=== PATIENT | female | born 1945 | race Caucasian/White ===

== ENCOUNTER 2016-12-17 11:42 | Inpatient (IN) | payer OTHER ==
[2016-12-17 12:05] VITALS: BMI 16.4
--- NOTE | 2016-12-17 14:01 | HP ---
Admission [facility] Chief Complaint: REHAB TX FOR DRUG DEPENDENCE Allergies/Adverse Reactions: Allergies Allergy/AdvReac Type Severity Reaction Status Date / Time No Known Allergies Allergy Verified 12/17/16 13:01 History of Present Illness: 71 Y/O FEMALE WITH A HX OF HEROIN AND COCAINE DEPENDENCE ON MMTP SEEKING DETOX [place]. Exam Limitations: No Limitations - Ebola screening Have you traveled outside of the country in the last 21 days: No Have you had contact with anyone from an Ebola affected area: No Have you been sick,other than usual withdrawal symptoms: No Do you have a fever: No - Review of Systems Constitutional: Loss of Appetite, Changes in sleep, Unintentional Wgt. Loss EENT: reports: Blurred Vision, Tearing, Nose Congestion (RUNNY NOSE), Dental Problems (FULL UPPER AND LOWER DENTURES. NO TEETH) Respiratory: reports: Shortness of Breath (HX ASTHMA/COPD), Wheezing Cardiac: reports: No Symptoms Reported GI: reports: Poor Appetite : reports: No Symptoms Reported Musculoskeletal: reports: Back Pain, Joint Pain, Muscle Pain, Other (HX ARTHRITIS) Integumentary: reports: No Symptoms Reported Neuro: reports: Headache, Numbness, Tingling, Tremors, Unsteady Gait (HX FALLS. USES CANE) Endocrine: reports: No Symptoms Reported Hematology: reports: Anemia Psychiatric: reports: Orientated x3, Anxious, Depressed Other Systems: Reviewed and Negative Patient History - Patient Medical History Hx Anemia: Yes Hx Asthma: Yes (ON MDI) Hx Chronic Obstructive Pulmonary Disease (COPD): Yes Hx Cardiac Disorders: No Hx Hypertension: No Hx Hypercholesterolemia: No HX Cerebrovascular Accident: No Hx Seizures: No Hx Diabetes: No Hx Gastrointestinal Disorders: Yes (GERD-ZANTAC IN THE PAST) Hx Genitourinary Disorders: No Hx Sexually Transmitted Disorders: No Hx Renal Disease (ESRD): No Hx Thyroid Disease: No Hx Human Immunodeficiency Virus (HIV): No (NEGATIVE HX) Hx Hepatitis C: No Hx Depression: Yes (ON MEDS-SEROQUEL AND TRAZODONE) Hx Suicide Attempt: No (DENIES) Hx Bipolar Disorder: No Hx Schizophrenia: No - Patient Surgical History Past Surgical History: No Hx Neurologic Surgery: No Hx Cataract Extraction: No Hx Cardiac Surgery: No Hx Lung Surgery: No Hx Breast Surgery: No Hx Breast Biopsy: No Hx Abdominal Surgery: No Hx Appendectomy: No Hx Cholecystectomy: No Hx Genitourinary Surgery: No Hx Section: No Hx Orthopedic Surgery: No Hx Hysterectomy: No Anesthesia Reaction: No - PPD History Previous Implant?: Yes Documented Results: Negative w/o proof Implanted On [facility] Admission?: No PPD to be Administered?: Yes - Reproductive History Patient is a Female of Child Bearing Age (11 -55 yrs old): 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 History Hx Alcohol Use: No (DENIES) Hx Substance Use: Yes (HEROIN/CRACK) Substance Use Type: Cocaine, Heroin Hx Substance Use Treatment: Yes (CURRENTLY IN [facility] WITH METHADONE 120 MG PO DAILY,LAST DOSED TODAY.) - Substances Abused Crack Route: Smoking Frequency: Daily Amount used: $20 Age of first use: 21 Date of Last Use: 12/16/16 Heroin Route: Inhalation Frequency: 3-6 times per week Amount used: 10 BAGS Age of first use: 21 Date of Last Use: 12/16/16 Family Disease History - Family Disease History Family History: Denies Admission Physical Exam [facility] - Vital Signs Vital Signs: Vital Signs - 24 hr 12/17/16 12:02 Temperature 98.3 F Pulse Rate 71 Respiratory 16 Rate Blood Pressure 100/60 - Physical General Appearance: Yes: No Apparent Distress, Thin, Irritable, Anxious HEENTM: Yes: EOMI, Normocephalic, RAEGAN, Nasal Congestion, Rhinorrhea Respiratory: Yes: Chest Non-Tender, Lungs Clear, Normal Breath Sounds, No Respiratory Distress Neck: Yes: No masses,lesions,Nodules, Supple, Trachea in good position Breast: Yes: Breast Exam Deferred Cardiology: Yes: Regular Rhythm, Regular Rate, S1, S2 Abdominal: Yes: Normal Bowel Sounds, Non Tender, Flat, Soft Genitourinary: Yes: Other (N/C) Back: Yes: Within Normal Limits Musculoskeletal: Yes: full range of Motion, Gait Steady Extremities: Yes: Normal Range of Motion, Non-Tender 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, Fully Oriented, Alert Lymphatic: Yes: Within Normal Limits - Diagnostic (1) Methadone maintenance therapy patient Current Visit: Yes Status: Chronic (2) Cocaine dependence, uncomplicated Current Visit: Yes Status: Acute (3) Asthma Current Visit: Yes Status: Acute Qualifiers: Asthma severity: mild intermittent Asthma complication type: uncomplicated Qualified Code(s): J45.20 - Mild intermittent asthma, uncomplicated (4) GERD (gastroesophageal reflux disease) Current Visit: Yes Status: Chronic Qualifiers: Esophagitis presence: without esophagitis Qualified Code(s): K21.9 - Gastro-esophageal reflux disease without esophagitis Cleared for Admission [facility] - Detox or Rehab Claeared for Rehab Admission: Yes [facility] Breath Alcohol Content Breath Alcohol Content: 0 Urine Pregancy Test - Result Urine Test Results: Negative- NO Line Present Urine Drug Screen - Results Drug Screen Negative: No Urine Drug Screen Results: MENA-Cocaine, MTD-Methadone
[2016-12-17] MEDS ORDERED: ACETAMINOPHEN 325 MG TABLET (FP) PO PRN (14:15)
[2016-12-17] MEDS ORDERED: LOPERAMIDE HCL 2 MG CAPSULE PO PRN (14:15)
[2016-12-17] MEDS ORDERED: P-EPHED 60MG/TRIPROLIDI 2.5MG TABLET PO PRN (14:15)
[2016-12-17] MEDS ORDERED: guaiFENesin/D-METHORPHAN HB 10 ML UNIT-DOSE CUPS PO PRN (14:15)
[2016-12-17] MEDS ORDERED: MAGNESIUM HYDROX 2400MG/30ML ORAL SUSPENSION 30 ML CUP PO PRN (14:15)
[2016-12-17] MEDS ORDERED: MAGNESIUM CITRATE 300 ML BOTTLE PO PRN (14:15)
[2016-12-17] MEDS ORDERED: MENTHOL/PHENOL 1 EACH UD MM PRN (14:15)
[2016-12-17] MEDS ORDERED: ALBUTEROL SO4 6.7 GM HFA INHALER IH PRN (14:21)
[2016-12-17 16:55] LABS: URINE APPEARANCE SLCLOUDY; URINE BILIRUBIN NEGATIVE (NEGATIVE); URINE BLOOD NEGATIVE (NEGATIVE); URINE COLOR YELLOW; URINE GLUCOSE (UA) NEGATIVE (NEGATIVE); URINE KETONE NEGATIVE (NEGATIVE); URINE LEUK ESTERASE TRACE (NEGATIVE); URINE NITRITE NEGATIVE (NEGATIVE); URINE PROTEIN NEGATIVE (NEGATIVE); URINE UROBILINOGEN NEGATIVE mg/dL (0.2-1.0)
[2016-12-17 17:04] LABS: MCH 29.6 pg (25.7-33.7); MCHC 32.6 g/dl (32.0-36.0); MEAN CELL VOLUME 90.6 fl (80-96); MEAN PLT VOLUME 8.6 fl (7.5-11.1); PLATELET COUNT 374 K/MM3 (134-434); WHITE BLOOD COUNT 11.1 K/mm3 (4.0-10.0)
[2016-12-17 17:09] LABS: ALBUMIN 2.9 g/dl (3.4-5.0); ALK PHOS 101 U/L (45-117); ANION GAP 6 (8-16); BILIRUBIN,TOTAL 0.7 mg/dL (0.2-1.0); CALCIUM 8.8 mg/dL (8.5-10.1); CO2 34 mmol/L (21-32); CREATININE 0.8 mg/dL (0.55-1.02); GLUCOSE,RANDOM 96 mg/dL (74-106); SGOT/AST 19 U/L (15-37); SGPT/ALT 16 U/L (12-78); TOT PROT 6.8 g/dl (6.4-8.2)
[2016-12-17] MEDS ORDERED: TUBERCULIN PPD 5 TU/0.1ML VIAL ID ONE (17:54)
[2016-12-17] MEDS: NICOTINE 14 MG/24 HOURS TOPICAL PATCH TD SCH (19:02)
[2016-12-17 20:04] LABS: URINE RBC 1 /hpf (0-3); URINE WBC 3 /hpf (3-5)
[2016-12-17] MEDS: QUEtiapine FUMARATE 200 MG TABLET PO SCH (21:28)
[2016-12-17] MEDS: traZODone HCL 100 MG TABLET (FP) PO SCH (21:28)
[2016-12-17] MEDS: THIAMINE HCL 100 MG TABLET (FP) PO SCH (21:28)
[2016-12-18] MEDS ORDERED: METHADONE HCL 40 MG DISPERSABLE TABLET PO ONE (07:53)
[2016-12-18] MEDS: NICOTINE 14 MG/24 HOURS TOPICAL PATCH TD SCH (09:44)
[2016-12-18] MEDS: PRENATAL VITAMINS W/ FOLIC ACID TABLET (FP) PO SCH (09:44)
[2016-12-18] MEDS ORDERED: PNEUMOC 13-VAL CONJ-DIP CRM/PF 0.5 ML DISP.SYRIN IM ONE (12:00)
[2016-12-18 12:19] LABS: HIV 1 & 2 AB NEGATIVE; HIV 1 AGp24 NEGATIVE
--- NOTE | 2016-12-18 18:44 | EKG ---
Test Reason : Blood Pressure : / mmHG Vent. Rate : 061 BPM Atrial Rate : 061 BPM P-R Int : 134 ms QRS Dur : 108 ms QT Int : 434 ms P-R-T Axes : 065 -62 064 degrees QTc Int : 436 ms NORMAL SINUS RHYTHM INCOMPLETE RIGHT BUNDLE BRANCH BLOCK LEFT ANTERIOR FASCICULAR BLOCK ABNORMAL ECG WHEN COMPARED WITH ECG OF 13-SEP-2008 16:32, NO SIGNIFICANT CHANGE WAS FOUND Confirmed by CHRIS ROBISON MD ([id number]) on 12/18/2016 6:44:35 PM Referred By: Confirmed By:CHRIS ROBISON MD
[2016-12-18] MEDS: THIAMINE HCL 100 MG TABLET (FP) PO SCH (21:22)
[2016-12-18] MEDS: QUEtiapine FUMARATE 200 MG TABLET PO SCH (21:22)
[2016-12-18] MEDS: traZODone HCL 100 MG TABLET (FP) PO SCH (21:22)
[2016-12-18] MEDS: diphenhydrAMINE HCL 50 MG CAPSULE PO PRN (21:38)
[2016-12-19] MEDS: METHADONE HCL 40 MG DISPERSABLE TABLET PO SCH (07:14)
[2016-12-19] MEDS: PRENATAL VITAMINS W/ FOLIC ACID TABLET (FP) PO SCH (09:38)
[2016-12-19] MEDS: NICOTINE 14 MG/24 HOURS TOPICAL PATCH TD SCH (09:38)
[2016-12-19] MEDS: traZODone HCL 100 MG TABLET (FP) PO SCH (21:39)
[2016-12-19] MEDS: diphenhydrAMINE HCL 50 MG CAPSULE PO PRN (21:39)
[2016-12-19] MEDS: QUEtiapine FUMARATE 200 MG TABLET PO SCH (21:39)
[2016-12-19] MEDS: THIAMINE HCL 100 MG TABLET (FP) PO SCH (21:39)
[2016-12-20] MEDS: METHADONE HCL 40 MG DISPERSABLE TABLET PO SCH (06:22)
[2016-12-20] MEDS: PRENATAL VITAMINS W/ FOLIC ACID TABLET (FP) PO SCH (10:20)
[2016-12-20] MEDS: NICOTINE 14 MG/24 HOURS TOPICAL PATCH TD SCH (10:20)
--- NOTE | 2016-12-20 10:24 | HP ---
Psychiatrist Admission - Data Date of interview: 12/20/16 Admission source: [facility] Identifying data: This is the first admission to [address] [place] [address] rehabilitation for this 71 years old female single female,reides alone ,supported by [facility]. Medical History: GERD,BA,Chronic arthritis,Loss weight. Psychiatric History: Patient reports first contact with psychiatrist was about 20 years ago when she was admitted to [facility] after suicidal attempt (cut her wrist).Patient was evaluated by psychiatrist.She was dx wirh Bipolar disorder and placed on psychotropic medications:Trazodone 200 mg po hs, Seroquel 200 mg po hs. with some reponse.Patient reports no more psychiatric admissions,no suicidal attempts after that.Patient sees psychiatrist on and off, most recent appointment was a few months ago when she was attending [facility] program.She was on Seroquel 200 mg po hs and Trazodone 200 mg po hs. Physical/Sexual Abuse/Trauma History: denies Vital Signs: Vital Signs - 24 hr 12/20/16 12/20/16 12/20/16 00:30 03:30 06:39 Temperature 97.3 F L Pulse Rate 92 H Respiratory 18 18 18 Rate Blood Pressure 104/66 Allergies/Adverse Reactions: Allergies Allergy/AdvReac Type Severity Reaction Status Date / Time No Known Allergies Allergy Verified 12/17/16 13:01 Date of last physical exam: 12/17/16 Concur with the findings of this exam: No - Substance Abuse/Tx History Hx Alcohol Use: No Hx Substance Use: Yes (cocaine since late ,herin since 21 yo(sniffing 5 bags daily),MMTP 120 ) Substance Use Type: Cocaine, Heroin Hx Substance Use Treatment: Yes (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) - Admission Criteria Previous failed treatment: Yes Poor recovery environment: Yes Comorbidities: Yes Lacks judgement: Yes Mental Status Exam - Mental Status Exam Alert and Oriented to: Time, Place, Person Cognitive Function: Grossly Intact Patient Appearance: Unkempt Mood: Sad Affect: Mood Congruent, Labile Patient Behavior: Cooperative Speech Pattern: Clear Voice Loudness: Normal Thought Process: Goal Oriented Thought Disorder: Not Present Hallucinations: Denies Suicidal Ideation: Denies Homicidal Ideation: Denies Insight/Judgement: Fair Sleep: Fair Appetite: Fair, Weight loss Muscle strength/Tone: Normal Gait/Station: Normal Psychiatric Findings - Problem List (Taylor 1, 2,3) (1) Methadone maintenance therapy patient Current Visit: Yes Status: Chronic (2) Asthma Current Visit: Yes Status: Chronic Qualifiers: Asthma severity: mild intermittent Asthma complication type: uncomplicated Qualified Code(s): J45.20 - Mild intermittent asthma, uncomplicated (3) Cocaine dependence, uncomplicated Current Visit: Yes Status: Chronic (4) GERD (gastroesophageal reflux disease) Current Visit: Yes Status: Chronic Qualifiers: Esophagitis presence: without esophagitis Qualified Code(s): K21.9 - Gastro-esophageal reflux disease without esophagitis (5) Bipolar II disorder Current Visit: Yes Status: Chronic - Initial Treatment Plan Initial Treatment Plan: Continue Seroquel 200 mg po hs and Trazodone 200 mg po hs.will monitor progress.
[2016-12-20] MEDS: QUEtiapine FUMARATE 200 MG TABLET PO SCH (21:17)
[2016-12-20] MEDS: traZODone HCL 100 MG TABLET (FP) PO SCH (21:18)
[2016-12-20] MEDS: diphenhydrAMINE HCL 50 MG CAPSULE PO PRN (21:18)
[2016-12-20] MEDS: THIAMINE HCL 100 MG TABLET (FP) PO SCH (21:18)
[2016-12-21] MEDS: METHADONE HCL 40 MG DISPERSABLE TABLET PO SCH (06:20)
[2016-12-21] MEDS: PRENATAL VITAMINS W/ FOLIC ACID TABLET (FP) PO SCH (09:52)
[2016-12-21] MEDS: NICOTINE 14 MG/24 HOURS TOPICAL PATCH TD SCH (09:52)
[2016-12-21] MEDS: MAG HYDROX/AL HYDROX/SIMETH 30 ML UNIT-DOSE CUP PO PRN (20:29)
[2016-12-21] MEDS: QUEtiapine FUMARATE 200 MG TABLET PO SCH (21:19)
[2016-12-21] MEDS: traZODone HCL 100 MG TABLET (FP) PO SCH (21:19)
[2016-12-21] MEDS: THIAMINE HCL 100 MG TABLET (FP) PO SCH (21:19)
[2016-12-21] MEDS: diphenhydrAMINE HCL 50 MG CAPSULE PO PRN (21:20)
[2016-12-22] MEDS: METHADONE HCL 40 MG DISPERSABLE TABLET PO SCH (06:20)
[2016-12-22] MEDS: NICOTINE 14 MG/24 HOURS TOPICAL PATCH TD SCH (09:45)
[2016-12-22] MEDS: PRENATAL VITAMINS W/ FOLIC ACID TABLET (FP) PO SCH (09:45)
[2016-12-22] MEDS: MAG HYDROX/AL HYDROX/SIMETH 30 ML UNIT-DOSE CUP PO PRN (16:01)
[2016-12-22] MEDS: diphenhydrAMINE HCL 50 MG CAPSULE PO PRN (21:15)
[2016-12-22] MEDS: traZODone HCL 100 MG TABLET (FP) PO SCH (21:15)
[2016-12-22] MEDS: THIAMINE HCL 100 MG TABLET (FP) PO SCH (21:15)
[2016-12-22] MEDS: QUEtiapine FUMARATE 200 MG TABLET PO SCH (21:15)
[2016-12-23] MEDS: METHADONE HCL 40 MG DISPERSABLE TABLET PO SCH (07:48)
[2016-12-23] MEDS: NICOTINE 14 MG/24 HOURS TOPICAL PATCH TD SCH (09:53)
[2016-12-23] MEDS: PRENATAL VITAMINS W/ FOLIC ACID TABLET (FP) PO SCH (09:53)
[2016-12-23] MEDS: PANTOPRAZOLE 40 MG TABLET (FP) PO SCH (15:47)
[2016-12-23] MEDS: QUEtiapine FUMARATE 200 MG TABLET PO SCH (21:14)
[2016-12-23] MEDS: THIAMINE HCL 100 MG TABLET (FP) PO SCH (21:14)
[2016-12-23] MEDS: traZODone HCL 100 MG TABLET (FP) PO SCH (21:14)
[2016-12-23] MEDS: diphenhydrAMINE HCL 50 MG CAPSULE PO PRN (21:14)
[2016-12-24] MEDS: METHADONE HCL 40 MG DISPERSABLE TABLET PO SCH (06:49)
[2016-12-24] MEDS: PRENATAL VITAMINS W/ FOLIC ACID TABLET (FP) PO SCH (10:01)
[2016-12-24] MEDS: PANTOPRAZOLE 40 MG TABLET (FP) PO SCH (10:01)
[2016-12-24] MEDS: NICOTINE 14 MG/24 HOURS TOPICAL PATCH TD SCH (10:01)
[2016-12-24] MEDS: THIAMINE HCL 100 MG TABLET (FP) PO SCH (21:19)
[2016-12-24] MEDS: QUEtiapine FUMARATE 200 MG TABLET PO SCH (21:19)
[2016-12-24] MEDS: diphenhydrAMINE HCL 50 MG CAPSULE PO PRN (21:19)
[2016-12-24] MEDS: traZODone HCL 100 MG TABLET (FP) PO SCH (21:19)
[2016-12-25] MEDS: METHADONE HCL 40 MG DISPERSABLE TABLET PO SCH (06:38)
[2016-12-25] MEDS: PRENATAL VITAMINS W/ FOLIC ACID TABLET (FP) PO SCH (09:35)
[2016-12-25] MEDS: PANTOPRAZOLE 40 MG TABLET (FP) PO SCH (09:35)
[2016-12-25] MEDS: NICOTINE 14 MG/24 HOURS TOPICAL PATCH TD SCH (09:36)
[2016-12-25] MEDS: traZODone HCL 100 MG TABLET (FP) PO SCH (21:16)
[2016-12-25] MEDS: QUEtiapine FUMARATE 200 MG TABLET PO SCH (21:16)
[2016-12-25] MEDS: THIAMINE HCL 100 MG TABLET (FP) PO SCH (21:16)
[2016-12-25] MEDS: diphenhydrAMINE HCL 50 MG CAPSULE PO PRN (21:17)
[2016-12-25] MEDS: MAG HYDROX/AL HYDROX/SIMETH 30 ML UNIT-DOSE CUP PO PRN (22:53)
[2016-12-26] MEDS: METHADONE HCL 40 MG DISPERSABLE TABLET PO SCH (06:46)
[2016-12-26] MEDS ORDERED: PT OWN MED DRAWER 7, Y5N ONE (08:07)
[2016-12-26] MEDS: NICOTINE 14 MG/24 HOURS TOPICAL PATCH TD SCH (09:58)
[2016-12-26] MEDS: PANTOPRAZOLE 40 MG TABLET (FP) PO SCH (09:59)
[2016-12-26] MEDS: PRENATAL VITAMINS W/ FOLIC ACID TABLET (FP) PO SCH (10:00)
[2016-12-26] MEDS: QUEtiapine FUMARATE 200 MG TABLET PO SCH (21:10)
[2016-12-26] MEDS: THIAMINE HCL 100 MG TABLET (FP) PO SCH (21:10)
[2016-12-26] MEDS: traZODone HCL 100 MG TABLET (FP) PO SCH (21:10)
[2016-12-26] MEDS: diphenhydrAMINE HCL 50 MG CAPSULE PO PRN (21:11)
[2016-12-27] MEDS: METHADONE HCL 40 MG DISPERSABLE TABLET PO SCH (06:29)
[2016-12-27] MEDS: NICOTINE 14 MG/24 HOURS TOPICAL PATCH TD SCH (09:36)
[2016-12-27] MEDS: PANTOPRAZOLE 40 MG TABLET (FP) PO SCH (09:36)
[2016-12-27] MEDS: PRENATAL VITAMINS W/ FOLIC ACID TABLET (FP) PO SCH (09:36)
[2016-12-27] MEDS: traZODone HCL 100 MG TABLET (FP) PO SCH (21:06)
[2016-12-27] MEDS: THIAMINE HCL 100 MG TABLET (FP) PO SCH (21:06)
[2016-12-27] MEDS: diphenhydrAMINE HCL 50 MG CAPSULE PO PRN (21:06)
[2016-12-27] MEDS: QUEtiapine FUMARATE 200 MG TABLET PO SCH (21:07)
[2016-12-27] MEDS: MAG HYDROX/AL HYDROX/SIMETH 30 ML UNIT-DOSE CUP PO PRN (21:08)
[2016-12-28] MEDS: METHADONE HCL 40 MG DISPERSABLE TABLET PO SCH (06:27)
[2016-12-28] MEDS: PRENATAL VITAMINS W/ FOLIC ACID TABLET (FP) PO SCH (10:12)
[2016-12-28] MEDS: NICOTINE 14 MG/24 HOURS TOPICAL PATCH TD SCH (10:12)
[2016-12-28] MEDS: PANTOPRAZOLE 40 MG TABLET (FP) PO SCH (10:12)
[2016-12-28] MEDS: IBUPROFEN 400 MG TABLET (FP) PO PRN (18:23)
[2016-12-28] MEDS: diphenhydrAMINE HCL 50 MG CAPSULE PO PRN (21:27)
[2016-12-28] MEDS: QUEtiapine FUMARATE 200 MG TABLET PO SCH (21:27)
[2016-12-28] MEDS: traZODone HCL 100 MG TABLET (FP) PO SCH (21:27)
[2016-12-28] MEDS: THIAMINE HCL 100 MG TABLET (FP) PO SCH (21:27)
[2016-12-29] MEDS: METHADONE HCL 40 MG DISPERSABLE TABLET PO SCH (06:31)
[2016-12-29] MEDS: NICOTINE 14 MG/24 HOURS TOPICAL PATCH TD SCH (09:57)
[2016-12-29] MEDS: PANTOPRAZOLE 40 MG TABLET (FP) PO SCH (09:59)
[2016-12-29] MEDS: PRENATAL VITAMINS W/ FOLIC ACID TABLET (FP) PO SCH (09:59)
[2016-12-29] MEDS: THIAMINE HCL 100 MG TABLET (FP) PO SCH (21:13)
[2016-12-29] MEDS: diphenhydrAMINE HCL 50 MG CAPSULE PO PRN (21:13)
[2016-12-29] MEDS: traZODone HCL 100 MG TABLET (FP) PO SCH (21:13)
[2016-12-29] MEDS: QUEtiapine FUMARATE 200 MG TABLET PO SCH (21:13)
[2016-12-29] MEDS: MAG HYDROX/AL HYDROX/SIMETH 30 ML UNIT-DOSE CUP PO PRN (21:15)
[2016-12-30] MEDS: METHADONE HCL 40 MG DISPERSABLE TABLET PO SCH (06:22)
[2016-12-30] MEDS: NICOTINE 14 MG/24 HOURS TOPICAL PATCH TD SCH (09:41)
[2016-12-30] MEDS: PRENATAL VITAMINS W/ FOLIC ACID TABLET (FP) PO SCH (09:42)
[2016-12-30] MEDS: PANTOPRAZOLE 40 MG TABLET (FP) PO SCH (09:42)
[2016-12-30] MEDS: THIAMINE HCL 100 MG TABLET (FP) PO SCH (21:10)
[2016-12-30] MEDS: traZODone HCL 100 MG TABLET (FP) PO SCH (21:11)
[2016-12-30] MEDS: diphenhydrAMINE HCL 50 MG CAPSULE PO PRN (21:11)
[2016-12-30] MEDS: QUEtiapine FUMARATE 200 MG TABLET PO SCH (21:11)
[2016-12-30] MEDS: MAG HYDROX/AL HYDROX/SIMETH 30 ML UNIT-DOSE CUP PO PRN (21:12)
[2016-12-31] MEDS: METHADONE HCL 40 MG DISPERSABLE TABLET PO SCH (06:24)
[2016-12-31] MEDS: PANTOPRAZOLE 40 MG TABLET (FP) PO SCH (10:05)
[2016-12-31] MEDS: NICOTINE 14 MG/24 HOURS TOPICAL PATCH TD SCH (10:05)
[2016-12-31] MEDS: PRENATAL VITAMINS W/ FOLIC ACID TABLET (FP) PO SCH (10:05)
[2016-12-31] MEDS: MAG HYDROX/AL HYDROX/SIMETH 30 ML UNIT-DOSE CUP PO PRN ×2 (10:07→21:22)
[2016-12-31] MEDS: IBUPROFEN 400 MG TABLET (FP) PO PRN (13:26)
[2016-12-31] MEDS: traZODone HCL 100 MG TABLET (FP) PO SCH (21:19)
[2016-12-31] MEDS: diphenhydrAMINE HCL 50 MG CAPSULE PO PRN (21:20)
[2016-12-31] MEDS: THIAMINE HCL 100 MG TABLET (FP) PO SCH (21:20)
[2016-12-31] MEDS: QUEtiapine FUMARATE 200 MG TABLET PO SCH (21:21)
[2017-01-01] MEDS: METHADONE HCL 40 MG DISPERSABLE TABLET PO SCH (06:56)
[2017-01-01] MEDS: NICOTINE 14 MG/24 HOURS TOPICAL PATCH TD SCH (09:42)
[2017-01-01] MEDS: PRENATAL VITAMINS W/ FOLIC ACID TABLET (FP) PO SCH (09:42)
[2017-01-01] MEDS: PANTOPRAZOLE 40 MG TABLET (FP) PO SCH (09:42)
[2017-01-01] MEDS: MAG HYDROX/AL HYDROX/SIMETH 30 ML UNIT-DOSE CUP PO PRN ×2 (15:34→21:16)
[2017-01-01] MEDS: traZODone HCL 100 MG TABLET (FP) PO SCH (21:14)
[2017-01-01] MEDS: THIAMINE HCL 100 MG TABLET (FP) PO SCH (21:14)
[2017-01-01] MEDS: QUEtiapine FUMARATE 200 MG TABLET PO SCH (21:14)
[2017-01-01] MEDS: diphenhydrAMINE HCL 50 MG CAPSULE PO PRN (21:15)
[2017-01-02] MEDS: METHADONE HCL 40 MG DISPERSABLE TABLET PO SCH (06:35)
[2017-01-02] MEDS: PANTOPRAZOLE 40 MG TABLET (FP) PO SCH (09:46)
[2017-01-02] MEDS: NICOTINE 14 MG/24 HOURS TOPICAL PATCH TD SCH (09:46)
[2017-01-02] MEDS: PRENATAL VITAMINS W/ FOLIC ACID TABLET (FP) PO SCH (09:46)
[2017-01-02] MEDS: IBUPROFEN 400 MG TABLET (FP) PO PRN (13:11)
[2017-01-02] MEDS: NICOTINE POLACRILEX 2 MG GUM BUC PRN (13:11)
[2017-01-02] MEDS: diphenhydrAMINE HCL 50 MG CAPSULE PO PRN (21:12)
[2017-01-02] MEDS: traZODone HCL 100 MG TABLET (FP) PO SCH (21:12)
[2017-01-02] MEDS: QUEtiapine FUMARATE 200 MG TABLET PO SCH (21:12)
[2017-01-02] MEDS: THIAMINE HCL 100 MG TABLET (FP) PO SCH (21:12)
[2017-01-03] MEDS: METHADONE HCL 40 MG DISPERSABLE TABLET PO SCH ×2 (06:18→06:19)
[2017-01-03] MEDS: NICOTINE 14 MG/24 HOURS TOPICAL PATCH TD SCH (09:40)
[2017-01-03] MEDS: PRENATAL VITAMINS W/ FOLIC ACID TABLET (FP) PO SCH (09:41)
[2017-01-03] MEDS: PANTOPRAZOLE 40 MG TABLET (FP) PO SCH (09:41)
[2017-01-03] MEDS: IBUPROFEN 400 MG TABLET (FP) PO PRN (20:33)
[2017-01-03] MEDS: MAG HYDROX/AL HYDROX/SIMETH 30 ML UNIT-DOSE CUP PO PRN (20:33)
[2017-01-03] MEDS: QUEtiapine FUMARATE 200 MG TABLET PO SCH (21:08)
[2017-01-03] MEDS: traZODone HCL 100 MG TABLET (FP) PO SCH (21:08)
[2017-01-03] MEDS: THIAMINE HCL 100 MG TABLET (FP) PO SCH (21:08)
[2017-01-03] MEDS ORDERED: diphenhydrAMINE HCL 25 MG CAPSULE (FP) PO ONE (21:10)
[2017-01-03] MEDS: diphenhydrAMINE HCL 50 MG CAPSULE PO PRN (21:12)
[2017-01-04] MEDS: METHADONE HCL 40 MG DISPERSABLE TABLET PO SCH (06:25)
[2017-01-04] MEDS: PRENATAL VITAMINS W/ FOLIC ACID TABLET (FP) PO SCH (10:09)
[2017-01-04] MEDS: NICOTINE 14 MG/24 HOURS TOPICAL PATCH TD SCH (10:09)
[2017-01-04] MEDS: PANTOPRAZOLE 40 MG TABLET (FP) PO SCH (10:09)
[2017-01-04] MEDS: IBUPROFEN 400 MG TABLET (FP) PO PRN (10:11)
[2017-01-04] MEDS: NICOTINE POLACRILEX 2 MG GUM BUC PRN (10:32)
[2017-01-04] MEDS: MAG HYDROX/AL HYDROX/SIMETH 30 ML UNIT-DOSE CUP PO PRN (21:22)
[2017-01-04] MEDS: traZODone HCL 100 MG TABLET (FP) PO SCH (21:22)
[2017-01-04] MEDS: THIAMINE HCL 100 MG TABLET (FP) PO SCH (21:22)
[2017-01-04] MEDS: diphenhydrAMINE HCL 50 MG CAPSULE PO PRN (21:22)
[2017-01-04] MEDS: QUEtiapine FUMARATE 200 MG TABLET PO SCH (21:22)
[2017-01-05] MEDS: METHADONE HCL 40 MG DISPERSABLE TABLET PO SCH (06:10)
[2017-01-05] MEDS: NICOTINE 14 MG/24 HOURS TOPICAL PATCH TD SCH (10:00)
[2017-01-05] MEDS: PANTOPRAZOLE 40 MG TABLET (FP) PO SCH (10:00)
[2017-01-05] MEDS: PRENATAL VITAMINS W/ FOLIC ACID TABLET (FP) PO SCH (10:00)
[2017-01-05] MEDS: IBUPROFEN 400 MG TABLET (FP) PO PRN (10:01)
[2017-01-05] MEDS: NICOTINE POLACRILEX 2 MG GUM BUC PRN (10:02)
[2017-01-05] MEDS: diphenhydrAMINE HCL 50 MG CAPSULE PO PRN (21:13)
[2017-01-05] MEDS: THIAMINE HCL 100 MG TABLET (FP) PO SCH (21:13)
[2017-01-05] MEDS: QUEtiapine FUMARATE 200 MG TABLET PO SCH (21:13)
[2017-01-05] MEDS: traZODone HCL 100 MG TABLET (FP) PO SCH (21:13)
[2017-01-06] MEDS: METHADONE HCL 40 MG DISPERSABLE TABLET PO SCH (06:17)
[2017-01-06] MEDS: PRENATAL VITAMINS W/ FOLIC ACID TABLET (FP) PO SCH (09:11)
[2017-01-06] MEDS: IBUPROFEN 400 MG TABLET (FP) PO PRN (09:11)
[2017-01-06] MEDS: PANTOPRAZOLE 40 MG TABLET (FP) PO SCH (09:12)
[2017-01-06] MEDS: NICOTINE 14 MG/24 HOURS TOPICAL PATCH TD SCH (09:12)
[2017-01-06] MEDS: NICOTINE POLACRILEX 2 MG GUM BUC PRN (09:13)
[2017-01-06] MEDS: traZODone HCL 100 MG TABLET (FP) PO SCH (21:04)
[2017-01-06] MEDS: diphenhydrAMINE HCL 50 MG CAPSULE PO PRN (21:04)
[2017-01-06] MEDS: THIAMINE HCL 100 MG TABLET (FP) PO SCH (21:04)
[2017-01-06] MEDS: QUEtiapine FUMARATE 200 MG TABLET PO SCH (21:04)
[2017-01-07] MEDS: METHADONE HCL 40 MG DISPERSABLE TABLET PO SCH (06:13)
[2017-01-07] MEDS: PANTOPRAZOLE 40 MG TABLET (FP) PO SCH (10:06)
[2017-01-07] MEDS: NICOTINE 14 MG/24 HOURS TOPICAL PATCH TD SCH (10:06)
[2017-01-07] MEDS: PRENATAL VITAMINS W/ FOLIC ACID TABLET (FP) PO SCH (10:06)
[2017-01-07] MEDS: NICOTINE POLACRILEX 2 MG GUM BUC PRN (10:44)
[2017-01-07] MEDS: IBUPROFEN 400 MG TABLET (FP) PO PRN (10:45)
[2017-01-07] MEDS: traZODone HCL 100 MG TABLET (FP) PO SCH (21:21)
[2017-01-07] MEDS: QUEtiapine FUMARATE 200 MG TABLET PO SCH (21:21)
[2017-01-07] MEDS: THIAMINE HCL 100 MG TABLET (FP) PO SCH (21:21)
[2017-01-07] MEDS: diphenhydrAMINE HCL 50 MG CAPSULE PO PRN (21:22)
[2017-01-08] MEDS: METHADONE HCL 40 MG DISPERSABLE TABLET PO SCH (06:24)
[2017-01-08] MEDS: PRENATAL VITAMINS W/ FOLIC ACID TABLET (FP) PO SCH (09:09)
[2017-01-08] MEDS: PANTOPRAZOLE 40 MG TABLET (FP) PO SCH (09:09)
[2017-01-08] MEDS: NICOTINE 14 MG/24 HOURS TOPICAL PATCH TD SCH (09:10)
[2017-01-08] MEDS: IBUPROFEN 400 MG TABLET (FP) PO PRN (09:11)
[2017-01-08] MEDS: NICOTINE POLACRILEX 2 MG GUM BUC PRN (09:11)
[2017-01-08] MEDS: MAG HYDROX/AL HYDROX/SIMETH 30 ML UNIT-DOSE CUP PO PRN (14:28)
[2017-01-08] MEDS: traZODone HCL 100 MG TABLET (FP) PO SCH (21:15)
[2017-01-08] MEDS: QUEtiapine FUMARATE 200 MG TABLET PO SCH (21:15)
[2017-01-08] MEDS: THIAMINE HCL 100 MG TABLET (FP) PO SCH (21:15)
[2017-01-08] MEDS: diphenhydrAMINE HCL 50 MG CAPSULE PO PRN (21:16)
[2017-01-09] MEDS: METHADONE HCL 40 MG DISPERSABLE TABLET PO SCH (06:18)
[2017-01-09] MEDS: NICOTINE 14 MG/24 HOURS TOPICAL PATCH TD SCH (09:41)
[2017-01-09] MEDS: PRENATAL VITAMINS W/ FOLIC ACID TABLET (FP) PO SCH (09:41)
[2017-01-09] MEDS: NICOTINE POLACRILEX 2 MG GUM BUC PRN (09:42)
[2017-01-09] MEDS: IBUPROFEN 400 MG TABLET (FP) PO PRN ×2 (09:42→21:10)
[2017-01-09] MEDS: PANTOPRAZOLE 40 MG TABLET (FP) PO SCH (09:42)
[2017-01-09] MEDS: THIAMINE HCL 100 MG TABLET (FP) PO SCH (21:09)
[2017-01-09] MEDS: traZODone HCL 100 MG TABLET (FP) PO SCH (21:09)
[2017-01-09] MEDS: QUEtiapine FUMARATE 200 MG TABLET PO SCH (21:09)
[2017-01-09] MEDS: diphenhydrAMINE HCL 50 MG CAPSULE PO PRN (21:10)
[2017-01-10] MEDS: METHADONE HCL 40 MG DISPERSABLE TABLET PO SCH (06:36)
[2017-01-10] MEDS: PRENATAL VITAMINS W/ FOLIC ACID TABLET (FP) PO SCH (10:09)
[2017-01-10] MEDS: MAG HYDROX/AL HYDROX/SIMETH 30 ML UNIT-DOSE CUP PO PRN (10:09)
[2017-01-10] MEDS: PANTOPRAZOLE 40 MG TABLET (FP) PO SCH (10:09)
[2017-01-10] MEDS: NICOTINE 14 MG/24 HOURS TOPICAL PATCH TD SCH (10:09)
[2017-01-10] MEDS: IBUPROFEN 400 MG TABLET (FP) PO PRN (13:33)
[2017-01-10] MEDS: traZODone HCL 100 MG TABLET (FP) PO SCH (21:17)
[2017-01-10] MEDS: diphenhydrAMINE HCL 50 MG CAPSULE PO PRN (21:17)
[2017-01-10] MEDS: QUEtiapine FUMARATE 200 MG TABLET PO SCH (21:17)
[2017-01-10] MEDS: THIAMINE HCL 100 MG TABLET (FP) PO SCH (21:18)
[2017-01-11] MEDS: METHADONE HCL 40 MG DISPERSABLE TABLET PO SCH (06:33)
[2017-01-11] MEDS: PRENATAL VITAMINS W/ FOLIC ACID TABLET (FP) PO SCH (10:05)
[2017-01-11] MEDS: PANTOPRAZOLE 40 MG TABLET (FP) PO SCH (10:05)
[2017-01-11] MEDS: NICOTINE 14 MG/24 HOURS TOPICAL PATCH TD SCH (10:06)
[2017-01-11] MEDS: IBUPROFEN 400 MG TABLET (FP) PO PRN ×2 (10:07→21:19)
[2017-01-11] MEDS: NICOTINE POLACRILEX 2 MG GUM BUC PRN (10:07)
[2017-01-11] MEDS: diphenhydrAMINE HCL 50 MG CAPSULE PO PRN (21:17)
[2017-01-11] MEDS: THIAMINE HCL 100 MG TABLET (FP) PO SCH (21:17)
[2017-01-11] MEDS: traZODone HCL 100 MG TABLET (FP) PO SCH (21:17)
[2017-01-11] MEDS: QUEtiapine FUMARATE 200 MG TABLET PO SCH (21:17)
[2017-01-12] MEDS: METHADONE HCL 40 MG DISPERSABLE TABLET PO SCH (06:36)
[2017-01-12] MEDS: NICOTINE 14 MG/24 HOURS TOPICAL PATCH TD SCH (10:26)
[2017-01-12] MEDS: PANTOPRAZOLE 40 MG TABLET (FP) PO SCH (10:26)
[2017-01-12] MEDS: PRENATAL VITAMINS W/ FOLIC ACID TABLET (FP) PO SCH (10:26)
[2017-01-12] MEDS: IBUPROFEN 400 MG TABLET (FP) PO PRN ×2 (10:27→21:16)
[2017-01-12] MEDS: NICOTINE POLACRILEX 2 MG GUM BUC PRN (10:28)
[2017-01-12] MEDS: diphenhydrAMINE HCL 50 MG CAPSULE PO PRN (21:15)
[2017-01-12] MEDS: QUEtiapine FUMARATE 200 MG TABLET PO SCH (21:15)
[2017-01-12] MEDS: traZODone HCL 100 MG TABLET (FP) PO SCH (21:15)
[2017-01-12] MEDS: THIAMINE HCL 100 MG TABLET (FP) PO SCH (21:15)
[2017-01-13] MEDS: METHADONE HCL 40 MG DISPERSABLE TABLET PO SCH (06:25)
[2017-01-13] MEDS: PANTOPRAZOLE 40 MG TABLET (FP) PO SCH (10:28)
[2017-01-13] MEDS: NICOTINE 14 MG/24 HOURS TOPICAL PATCH TD SCH (10:28)
[2017-01-13] MEDS: PRENATAL VITAMINS W/ FOLIC ACID TABLET (FP) PO SCH (10:28)
[2017-01-13] MEDS: NICOTINE POLACRILEX 2 MG GUM BUC PRN (10:30)
[2017-01-13] MEDS: IBUPROFEN 400 MG TABLET (FP) PO PRN (10:30)
[2017-01-13] MEDS: diphenhydrAMINE HCL 50 MG CAPSULE PO PRN (21:16)
[2017-01-13] MEDS: THIAMINE HCL 100 MG TABLET (FP) PO SCH (21:16)
[2017-01-13] MEDS: traZODone HCL 100 MG TABLET (FP) PO SCH (21:16)
[2017-01-13] MEDS: QUEtiapine FUMARATE 200 MG TABLET PO SCH (21:16)
[2017-01-14] MEDS: METHADONE HCL 40 MG DISPERSABLE TABLET PO SCH (06:18)
[2017-01-14 06:40] VITALS: BP 119/69; PULSE 102; TEMP 98.3
[2017-01-14] MEDS: PRENATAL VITAMINS W/ FOLIC ACID TABLET (FP) PO SCH (09:53)
[2017-01-14] MEDS: NICOTINE POLACRILEX 2 MG GUM BUC PRN (09:54)
[2017-01-14] MEDS: IBUPROFEN 400 MG TABLET (FP) PO PRN (09:54)
[2017-01-14] MEDS: NICOTINE 14 MG/24 HOURS TOPICAL PATCH TD SCH (09:54)
[2017-01-14] MEDS: PANTOPRAZOLE 40 MG TABLET (FP) PO SCH (09:54)
--- NOTE | 2017-01-14 10:10 | PN ---
Psychiatric Progress Note Vital Signs: Vital Signs Period Temp Pulse Resp BP Sys/Valiente Pulse Ox Last 24 Hr 98.3 F 102 16-16 119/69 Date of Session: 01/14/17 Chief Complaint:: Discharge visit HPI: Patient addressed Cocaine and Opioid dependence comorbid with Bipolar disorder. ROS: Significant for GERD,BA. Current Medications: Active Medications Generic Name Dose Route Start Last Admin Trade Name Freq PRN Reason Stop Dose Admin Acetaminophen 650 mg 12/17/16 14:15 01/05/17 15:09 Tylenol - PO 650 mg Q4H PRN Administration PAIN Al Hydroxide/Mg Hydroxide 30 ml 12/17/16 14:15 01/10/17 10:09 Mylanta Oral Suspension - PO 30 ml Q6H PRN Administration DYSPEPSIA Albuterol Sulfate 2 puff 12/17/16 14:21 Ventolin Hfa Inhaler - IH Q4H PRN SHORT OF BREATH/WHEEZING Diphenhydramine HCl 50 mg 12/17/16 14:15 01/13/17 21:16 Benadryl - PO 50 mg HSMR1 PRN Administration INSOMNIA Eucalyptus/Menthol/Phenol/Sorbitol 1 each 12/17/16 14:15 Cepastat Lozenge - MM Q4H PRN SORE THROAT Guaifenesin 10 ml 12/17/16 14:15 Robitussin Dm - PO Q6H PRN COUGH Ibuprofen 400 mg 12/17/16 14:15 01/14/17 09:54 Motrin - PO 400 mg Q6H PRN Administration SEVERE PAIN Loperamide HCl 4 mg 12/17/16 14:15 Imodium - PO Q6H PRN DIARRHEA Magnesium Citrate 300 ml 12/17/16 14:15 Citroma - PO Q48H PRN CONSTIPATION Magnesium Hydroxide 30 ml 12/17/16 14:15 Milk Of Magnesia - PO DAILY PRN CONSTIPATION Methadone HCl 120 mg 01/11/17 06:00 01/14/17 06:18 Dolophine - PO 120 mg DAILY@0600 CARLOTA Administration Nicotine 14 mg 12/17/16 14:34 01/14/17 09:54 Nicoderm Patch - TD 14 mg DAILY CARLOTA Administration Nicotine Polacrilex 2 mg 12/17/16 14:15 01/14/17 09:54 Nicorette Gum - BUC 2 mg Q2H PRN Administration NICOTINE REPLACEMENT RX Pantoprazole Sodium 40 mg 12/23/16 15:30 01/14/17 09:54 Protonix - PO 40 mg DAILY CARLOTA Administration Multivit/Folic Acid/Iron 1 tab 12/18/16 10:00 01/14/17 09:53 Vitamins (Sjr) - PO 1 tab DAILY CARLOTA Administration Pseudoephedrine/Triprolidine 1 combo 12/17/16 14:15 Actifed - PO TID PRN NASAL CONGESTION Quetiapine Fumarate 200 mg 12/17/16 22:00 01/13/17 21:16 Seroquel - PO 200 mg HS CARLOTA Administration Thiamine HCl 100 mg 12/17/16 22:00 01/13/17 21:16 Vitamin B1 - PO 100 mg HS CARLOTA Administration Trazodone HCl 200 mg 12/17/16 22:00 01/13/17 21:16 Desyrel - PO 200 mg HS CARLOTA Administration Current Side Effect: No Lab tests ordered: No Lab tests reviewed: Yes Provider note:: Patient completed this program today.she has met her treatment goals and will continue to address her issues on outpatient basis at [facility].Patient reports finding Seroquel 200 mg po hs and Trazodone 200 mg po hs lelp to cope with anxiety and insomnia,mood instability.Scripts provided for 30 days . Patient identifies areas of difficulties and ways ,coping skills ,support she can utilize to maintain recovery. Patient is stable for discharge today. Total face to face time:: 30 Mental Status Exam - Mental Status Exam Alert and Oriented to: Time, Place, Person Cognitive Function: Grossly Intact Patient Appearance: Well Groomed Mood: Hopeful, Euthymic Affect: Appropriate, Mood Congruent Patient Behavior: Cooperative Speech Pattern: Clear Voice Loudness: Normal Thought Process: Goal Oriented Thought Disorder: Not Present Hallucinations: Denies Suicidal Ideation: Denies Homicidal Ideation: Denies Insight/Judgement: Fair Sleep: Fair Appetite: Good Muscle strength/Tone: Normal Gait/Station: Normal Psychiatric Treatment Plan - Problem List (1) Methadone maintenance therapy patient Current Visit: Yes (2) Asthma Current Visit: Yes Qualifiers: Asthma severity: mild intermittent Asthma complication type: uncomplicated Qualified Code(s): J45.20 - Mild intermittent asthma, uncomplicated (3) Cocaine dependence, uncomplicated Current Visit: Yes (4) GERD (gastroesophageal reflux disease) Current Visit: Yes Qualifiers: Esophagitis presence: without esophagitis Qualified Code(s): K21.9 - Gastro-esophageal reflux disease without esophagitis (5) Bipolar II disorder Current Visit: Yes
== END 2017-01-14 10:50 | disposition home or self-care (01) | DRG 895 ==
LOC: YASAS 11:42 → Y3E 14:04
PROVIDERS: ADMIT Psychiatry & Neurology Psychiatry; ATTEND Psychiatry & Neurology Psychiatry
PROC: HZ42ZZZ Group Counseling for Substance Abuse Treatment, Cognitive-Behavioral (ICD-10-PCS; principal; 2016-12-17)
DX: F11.20 Opioid dependence, uncomplicated (principal); F14.20 Cocaine dependence, uncomplicated; F31.81 Bipolar II disorder; J45.20 Mild intermittent asthma, uncomplicated; J44.9 Chronic obstructive pulmonary disease, unspecified; K21.9 Gastro-esophageal reflux disease without esophagitis
CPT/HCPCS: 36415; 80053; 81003; 81015; 85027; 86593; 87389; 93005; 93010

== ENCOUNTER 2018-09-14 08:08 | Inpatient (IN) | payer OTHER ==
[2018-09-14 08:46] VITALS: BMI 18.3
--- NOTE | 2018-09-14 10:39 | HP ---
CIWA Score - Admission Criteria [facility] Guidelines: Admission for Medically Managed Detox: Requires at least one of the followin. CIWA greater than 12 2. Seizures within the past 24 hours 3. Delirium tremens within the past 24 hours 4. Hallucinations within the past 24 hours 5. Acute intervention needed for co occurring medical disorder 6. Acute intervention needed for co occurring psychiatric disorder 7. Severe withdrawal that cannot be handled at a lower level of care (continued vomiting, continued diarrhea, abnormal vital signs) requiring intravenous medication and/or fluids 8. Admission ROS [facility] - HPI Chief Complaint: i need help to stop using crack and heroin abused,mmtp 110 mgs/day Allergies/Adverse Reactions: Allergies Allergy/AdvReac Type Severity Reaction Status Date / Time No Known Allergies Allergy Verified 09/14/18 08:42 History of Present Illness: this 72 years old female with crack dependence,heroin abused,mmtp 110 mg/day, last medicated today,need help nicotine dependence 5 cigarette/day need nicotine patch weight loss schizophrenia on med last rehab 2016 [facility] history of asthma,copd,gerd,arthritis Exam Limitations: No Limitations - Ebola screening Have you traveled outside of the country in the last 21 days: No (N) Have you had contact with anyone from an Ebola affected area: No Do you have a fever: No - Review of Systems Constitutional: No Symptoms Reported EENT: reports: No Symptoms Reported Respiratory: reports: No Symptoms reported, Other (history of asthma,copd) Cardiac: reports: No Symptoms Reported GI: reports: No Symptoms Reported : reports: No Symptoms Reported, Other (gerd) Musculoskeletal: reports: Muscle Pain Integumentary: reports: No Symptoms Reported Neuro: reports: No Symptoms reported Endocrine: reports: No Symptoms Reported Hematology: reports: No Symptoms Reported Psychiatric: reports: No Sypmtoms Reported, Judgement Intact, Mood/Affect Appropiate, Orientated x3, other (schizophrenia) Patient History - Patient Medical History Hx Anemia: Yes Hx Asthma: Yes (ON MDI) Hx Chronic Obstructive Pulmonary Disease (COPD): Yes Hx Cancer: No Hx Cardiac Disorders: No Hx Congestive Heart Failure: No Hx Hypertension: No Hx Hypercholesterolemia: No Hx Pacemaker: No HX Cerebrovascular Accident: No Hx Seizures: No Hx Dementia: No Hx Diabetes: No Hx Gastrointestinal Disorders: Yes (GERD-ZANTAC IN THE PAST) Hx Liver Disease: No Hx Genitourinary Disorders: No Hx Sexually Transmitted Disorders: No Hx Renal Disease (ESRD): No Hx Thyroid Disease: No Hx Human Immunodeficiency Virus (HIV): No (NEGATIVE HX) Hx Hepatitis C: No Hx Depression: Yes (ON MEDS-SEROQUEL AND TRAZODONE) Hx Suicide Attempt: No (DENIES) Hx Bipolar Disorder: No Hx Schizophrenia: Yes Other Medical History: no suicidal,no homiidal - Patient Surgical History Past Surgical History: No Hx Neurologic Surgery: No Hx Cataract Extraction: No Hx Cardiac Surgery: No Hx Lung Surgery: No Hx Breast Surgery: No Hx Breast Biopsy: No Hx Abdominal Surgery: No Hx Appendectomy: No Hx Cholecystectomy: No Hx Genitourinary Surgery: No Hx Section: No Hx Orthopedic Surgery: No Hx Hysterectomy: No Anesthesia Reaction: No - PPD History Previous Implant?: Yes Documented Results: Negative w/o proof Implanted On Prior R Admission?: Yes Date: 12/19/16 PPD to be Administered?: Yes - Reproductive History Patient is a Female of Child Bearing Age (11 -55 yrs old): No Patient : No - Smoking Cessation Smoking history: Current every day smoker Have you smoked in the past 12 months: Yes Aproximately how many cigarettes per day: 5 Hx Chewing Tobacco Use: No Initiated information on smoking cessation: Yes 'Breaking Loose' booklet given: 09/14/18 - Substance & Tx. History Hx Alcohol Use: No Hx Substance Use: Yes Substance Use Type: Cocaine, Heroin Hx Substance Use Treatment: Yes ([facility] 2016) - Substances abused Heroin Substance route: Inhalation Frequency: Daily Amount used: 5BAGS Age of first use: 21 Date of last use: 09/14/18 Crack Substance route: Smoking Frequency: Daily Amount used: 20$ Age of first use: 21 Date of last use: 09/13/18 Family Disease History - Family Disease History Family Disease History: Other: Grandparent (unk), Father (unk), Mother (unk), Brother (unk), Sister (unk), Son (0), Daughter (0) Admission Physical Exam [facility] - Vital Signs Vital Signs: Vital Signs - 24 hr 09/14/18 09/14/18 08:42 09:12 Temperature 98.2 F 98.2 F Pulse Rate 62 62 Respiratory 18 18 Rate Blood Pressure 132/72 132/72 - Physical General Appearance: Yes: Mild Distress, Irritable, Anxious HEENTM: Yes: Normal ENT Inspection, Normocephalic, Pharynx Normal Respiratory: Yes: Lungs Clear, Normal Breath Sounds, No Respiratory Distress Neck: Yes: Within Normal Limits Breast: Yes: Breast Exam Deferred Cardiology: Yes: Within Normal Limits, Regular Rhythm, Regular Rate, S1, S2 Abdominal: Yes: Within Normal Limits, Normal Bowel Sounds, Non Tender, Soft Genitourinary: Yes: Within Normal Limits Back: Yes: Muscle Spasm Musculoskeletal: Yes: Back pain, Muscle Pain Extremities: Yes: Within Normal Limits 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 (6) GERD (gastroesophageal reflux disease) Current Visit: No Status: Chronic Qualifiers: Esophagitis presence: without esophagitis Qualified Code(s): K21.9 - Gastro -esophageal reflux disease without esophagitis Comment: takes meds, will see gi. (7) Methadone maintenance therapy patient Current Visit: No Status: Chronic Comment: cont tx and f/u as per program. Cleared for Admission [facility] - Detox or Rehab Claeared for Rehab Admission: Yes Breathalyzer - Breathalyzer Breathalyzer: 0 Urine Drug Screen - Test Device Lot number: [id number] Expiration date: 06/01/20 - Control Is test valid?: Yes - Results Drug screen NEGATIVE: No Urine drug screen results: MENA-Cocaine, MTD-Methadone Inpatient Rehab Admission - Rehab Decision to Admit Inpatient rehab admission?: Yes - Initial Determination Are CD services needed?: Yes Free of communicable disease: Yes Not in need of hospitalization: Yes - Rehab Admission Criteria Previous failed treatment: Yes Poor recovery environment: Yes Comorbidities: Yes Lacks judgement: No Patient is meeting Inpatient Rehab admission criteria:: Yes
[2018-09-14] MEDS ORDERED: guaiFENesin 200 MG/10 ML 10 ML UNIT-DOSE CUPS PO PRN (11:07)
[2018-09-14] MEDS ORDERED: LOPERAMIDE HCL 2 MG CAPSULE PO PRN (11:07)
[2018-09-14] MEDS ORDERED: P-EPHED 60MG/TRIPROLIDI 2.5MG TABLET PO PRN (11:07)
[2018-09-14] MEDS ORDERED: MAGNESIUM HYDROX 2400MG/30ML ORAL SUSPENSION 30 ML CUP PO PRN (11:07)
[2018-09-14] MEDS ORDERED: MENTHOL/PHENOL 1 EACH UD MM PRN (11:07)
[2018-09-14] MEDS ORDERED: MAGNESIUM CITRATE 300 ML BOTTLE PO PRN (11:07)
[2018-09-14] MEDS ORDERED: hydrOXYzine PAMOATE 25 MG CAPSULE (FP) PO PRN (11:07)
[2018-09-14] MEDS ORDERED: ALBUTEROL SO4 8 GM HFA INHALER IH PRN (11:09)
[2018-09-14] MEDS: NICOTINE 14 MG/24 HOURS TOPICAL PATCH TD SCH (12:29)
[2018-09-14 15:10] LABS: HEMATOCRIT 41.5 % (32.4-45.2); HEMOGLOBIN 13.5 GM/dL (10.7-15.3); MCHC 32.5 g/dl (32.0-36.0); MEAN CELL VOLUME 92.4 fl (80-96); MEAN PLT VOLUME 9.1 fl (7.5-11.1); PLATELET COUNT 265 K/MM3 (134-434); RBC 4.49 M/mm3 (3.60-5.2); WHITE BLOOD COUNT 11.5 K/mm3 (4.0-10.0)
[2018-09-14 15:12] LABS: EPI CELLS 3.6 /HPF (0-5/HPF); HYALINE CASTS 0 /lpf (0-8); URINE APPEARANCE CLEAR; URINE BACTERIA 58.1 /hpf (NEGATIVE); URINE BILIRUBIN NEGATIVE (NEGATIVE); URINE COLOR YELLOW; URINE GLUCOSE (UA) NEGATIVE (NEGATIVE); URINE KETONE NEGATIVE (NEGATIVE); URINE LEUK ESTERASE 1+ (NEGATIVE); URINE NITRITE NEGATIVE (NEGATIVE); URINE PROTEIN NEGATIVE (NEGATIVE); URINE RBC 1 /hpf (0-4); URINE UROBILINOGEN 0.2 mg/dL (0.2-1.0); URINE WBC 2 /hpf (0-5)
[2018-09-14 15:14] LABS: ALBUMIN 4.2 g/dl (3.4-5.0); BILIRUBIN,TOTAL 0.9 mg/dL (0.2-1); CALCIUM 9.8 mg/dL (8.5-10.1); POTASSIUM 4.3 mmol/L (3.5-5.1); TOT PROT 7.2 g/dl (6.4-8.2)
[2018-09-14] MEDS: MAG HYDROX/AL HYDROX/SIMETH 30 ML UNIT-DOSE CUP PO PRN (17:18)
[2018-09-14] MEDS: MELATONIN 5 MG TABLETS PO PRN (21:19)
[2018-09-14] MEDS: THIAMINE HCL 100 MG TABLET (FP) PO SCH (21:19)
[2018-09-15] MEDS ORDERED: METHADONE HCL 10 MG TABLET ONE (05:51)
[2018-09-15] MEDS ORDERED: METHADONE HCL 40 MG DISPERSABLE TABLET ONE (05:53)
[2018-09-15] MEDS: METHADONE 80 MG, METHADONE 30 MG PO SCH (06:00)
[2018-09-15] MEDS ORDERED: METHADONE HCL 40 MG DISPERSABLE TABLET PO SCH (06:00)
[2018-09-15] MEDS: NICOTINE 14 MG/24 HOURS TOPICAL PATCH TD SCH (10:28)
[2018-09-15] MEDS: PRENATAL VITAMINS W/ FOLIC ACID TABLET (FP) PO SCH (10:28)
[2018-09-15] MEDS: MAG HYDROX/AL HYDROX/SIMETH 30 ML UNIT-DOSE CUP PO PRN ×2 (10:30→22:22)
[2018-09-15] MEDS ORDERED: FLU VACCINE QUAD 60 MCG/0.5 ML (MDV 18-19) IM ONE (12:00)
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
[2018-09-15] MEDS ORDERED: PT OWN MED DRAWER 7, Y5N ONE ×2 (14:29→14:33)
[2018-09-15] MEDS: busPIRone HCL 5 MG TABLET PO SCH ×2 (16:11→22:22)
[2018-09-15] MEDS: IBUPROFEN 400 MG TABLET (FP) PO PRN (21:09)
[2018-09-15] MEDS: QUEtiapine FUMARATE 50 MG TABLET PO SCH (21:11)
[2018-09-15] MEDS: THIAMINE HCL 100 MG TABLET (FP) PO SCH (21:11)
[2018-09-15] MEDS: ACETAMINOPHEN 325 MG TABLET (FP) PO PRN (22:21)
[2018-09-16] MEDS ORDERED: METHADONE HCL 40 MG DISPERSABLE TABLET ONE (03:27)
[2018-09-16] MEDS ORDERED: METHADONE HCL 10 MG TABLET ONE (03:27)
[2018-09-16] MEDS: METHADONE 80 MG, METHADONE 30 MG PO SCH (06:11)
[2018-09-16] MEDS: busPIRone HCL 5 MG TABLET PO SCH ×2 (09:14→21:40)
[2018-09-16] MEDS: NICOTINE 14 MG/24 HOURS TOPICAL PATCH TD SCH (09:14)
[2018-09-16] MEDS: PRENATAL VITAMINS W/ FOLIC ACID TABLET (FP) PO SCH (09:14)
[2018-09-16] MEDS: MAG HYDROX/AL HYDROX/SIMETH 30 ML UNIT-DOSE CUP PO PRN ×2 (09:15→20:25)
[2018-09-16] MEDS ORDERED: PT OWN MED DRAWER 7, Y5N ONE (20:26)
[2018-09-16] MEDS: THIAMINE HCL 100 MG TABLET (FP) PO SCH (21:40)
[2018-09-16] MEDS: QUEtiapine FUMARATE 50 MG TABLET PO SCH (21:40)
[2018-09-17] MEDS ORDERED: METHADONE HCL 10 MG TABLET ONE (03:14)
[2018-09-17] MEDS ORDERED: METHADONE HCL 40 MG DISPERSABLE TABLET ONE (03:14)
[2018-09-17] MEDS: METHADONE 80 MG, METHADONE 30 MG PO SCH (06:10)
[2018-09-17] MEDS ORDERED: PT OWN MED DRAWER 7, Y5N ONE (08:58)
[2018-09-17] MEDS: PRENATAL VITAMINS W/ FOLIC ACID TABLET (FP) PO SCH (10:10)
[2018-09-17] MEDS: busPIRone HCL 5 MG TABLET PO SCH ×2 (10:10→21:30)
[2018-09-17] MEDS: NICOTINE 14 MG/24 HOURS TOPICAL PATCH TD SCH (10:10)
[2018-09-17] MEDS: MAG HYDROX/AL HYDROX/SIMETH 30 ML UNIT-DOSE CUP PO PRN ×2 (10:12→21:30)
[2018-09-17] MEDS: THIAMINE HCL 100 MG TABLET (FP) PO SCH (21:30)
[2018-09-17] MEDS: IBUPROFEN 400 MG TABLET (FP) PO PRN (21:30)
[2018-09-17] MEDS: QUEtiapine FUMARATE 50 MG TABLET PO SCH (21:30)
[2018-09-18] MEDS ORDERED: METHADONE HCL 10 MG TABLET ONE (03:19)
[2018-09-18] MEDS ORDERED: METHADONE HCL 40 MG DISPERSABLE TABLET ONE (03:19)
[2018-09-18] MEDS: METHADONE 80 MG, METHADONE 30 MG PO SCH (06:01)
[2018-09-18] MEDS: NICOTINE 14 MG/24 HOURS TOPICAL PATCH TD SCH (10:19)
[2018-09-18] MEDS: busPIRone HCL 5 MG TABLET PO SCH ×2 (10:20→21:26)
[2018-09-18] MEDS: PRENATAL VITAMINS W/ FOLIC ACID TABLET (FP) PO SCH (10:20)
[2018-09-18] MEDS: ACETAMINOPHEN 325 MG TABLET (FP) PO PRN ×2 (10:22→21:26)
[2018-09-18] MEDS: PANTOPRAZOLE 40 MG TABLET (FP) PO SCH (12:43)
[2018-09-18] MEDS: MAG HYDROX/AL HYDROX/SIMETH 30 ML UNIT-DOSE CUP PO PRN ×2 (14:57→21:26)
[2018-09-18] MEDS ORDERED: PT OWN MED DRAWER 7, Y5N ONE (20:21)
[2018-09-18] MEDS: QUEtiapine FUMARATE 50 MG TABLET PO SCH (21:26)
[2018-09-18] MEDS: THIAMINE HCL 100 MG TABLET (FP) PO SCH (21:26)
[2018-09-19] MEDS ORDERED: METHADONE HCL 10 MG TABLET ONE (05:55)
[2018-09-19] MEDS ORDERED: METHADONE HCL 40 MG DISPERSABLE TABLET ONE (05:55)
[2018-09-19] MEDS: METHADONE 80 MG, METHADONE 30 MG PO SCH (06:29)
[2018-09-19] MEDS ORDERED: PT OWN MED DRAWER 7, Y5N ONE ×2 (08:34→20:05)
[2018-09-19] MEDS: PANTOPRAZOLE 40 MG TABLET (FP) PO SCH (09:37)
[2018-09-19] MEDS: NICOTINE 14 MG/24 HOURS TOPICAL PATCH TD SCH (09:37)
[2018-09-19] MEDS: PRENATAL VITAMINS W/ FOLIC ACID TABLET (FP) PO SCH (09:37)
[2018-09-19] MEDS: busPIRone HCL 5 MG TABLET PO SCH ×2 (09:37→21:43)
[2018-09-19] MEDS: THIAMINE HCL 100 MG TABLET (FP) PO SCH (21:42)
[2018-09-19] MEDS: ACETAMINOPHEN 325 MG TABLET (FP) PO PRN (21:43)
[2018-09-19] MEDS: QUEtiapine FUMARATE 50 MG TABLET PO SCH (21:43)
[2018-09-19] MEDS: MAG HYDROX/AL HYDROX/SIMETH 30 ML UNIT-DOSE CUP PO PRN (21:45)
[2018-09-20] MEDS ORDERED: METHADONE HCL 10 MG TABLET ONE (03:42)
[2018-09-20] MEDS ORDERED: METHADONE HCL 40 MG DISPERSABLE TABLET ONE (03:42)
[2018-09-20] MEDS: METHADONE 80 MG, METHADONE 30 MG PO SCH (06:13)
[2018-09-20] MEDS ORDERED: PT OWN MED DRAWER 7, Y5N ONE (08:43)
[2018-09-20] MEDS: NICOTINE 14 MG/24 HOURS TOPICAL PATCH TD SCH (10:16)
[2018-09-20] MEDS: PANTOPRAZOLE 40 MG TABLET (FP) PO SCH (10:17)
[2018-09-20] MEDS: busPIRone HCL 5 MG TABLET PO SCH ×2 (10:17→21:43)
[2018-09-20] MEDS: PRENATAL VITAMINS W/ FOLIC ACID TABLET (FP) PO SCH (10:17)
[2018-09-20] MEDS: MAG HYDROX/AL HYDROX/SIMETH 30 ML UNIT-DOSE CUP PO PRN (10:18)
[2018-09-20] MEDS: QUEtiapine FUMARATE 50 MG TABLET PO SCH (21:41)
[2018-09-20] MEDS: MELATONIN 5 MG TABLETS PO PRN (21:41)
[2018-09-20] MEDS: THIAMINE HCL 100 MG TABLET (FP) PO SCH (21:41)
[2018-09-20] MEDS: ACETAMINOPHEN 325 MG TABLET (FP) PO PRN (21:42)
[2018-09-21] MEDS ORDERED: METHADONE HCL 40 MG DISPERSABLE TABLET ONE (06:05)
[2018-09-21] MEDS ORDERED: METHADONE HCL 10 MG TABLET ONE (06:05)
[2018-09-21] MEDS: METHADONE 80 MG, METHADONE 30 MG PO SCH (06:57)
[2018-09-21] MEDS ORDERED: PT OWN MED DRAWER 7, Y5N ONE ×2 (08:30→20:28)
[2018-09-21] MEDS: PANTOPRAZOLE 40 MG TABLET (FP) PO SCH (10:11)
[2018-09-21] MEDS: busPIRone HCL 5 MG TABLET PO SCH ×2 (10:11→21:25)
[2018-09-21] MEDS: NICOTINE 14 MG/24 HOURS TOPICAL PATCH TD SCH (10:11)
[2018-09-21] MEDS: PRENATAL VITAMINS W/ FOLIC ACID TABLET (FP) PO SCH (10:11)
[2018-09-21] MEDS: ACETAMINOPHEN 325 MG TABLET (FP) PO PRN ×2 (10:12→21:27)
[2018-09-21] MEDS: QUEtiapine FUMARATE 50 MG TABLET PO SCH (21:25)
[2018-09-21] MEDS: THIAMINE HCL 100 MG TABLET (FP) PO SCH (21:25)
[2018-09-22] MEDS ORDERED: METHADONE HCL 10 MG TABLET ONE (03:18)
[2018-09-22] MEDS ORDERED: METHADONE HCL 40 MG DISPERSABLE TABLET ONE (03:18)
[2018-09-22] MEDS: METHADONE 80 MG, METHADONE 30 MG PO SCH (06:22)
[2018-09-22] MEDS ORDERED: PT OWN MED DRAWER 7, Y5N ONE (08:25)
[2018-09-22] MEDS: NICOTINE 14 MG/24 HOURS TOPICAL PATCH TD SCH (10:13)
[2018-09-22] MEDS: busPIRone HCL 5 MG TABLET PO SCH ×2 (10:13→21:12)
[2018-09-22] MEDS: PANTOPRAZOLE 40 MG TABLET (FP) PO SCH (10:14)
[2018-09-22] MEDS: PRENATAL VITAMINS W/ FOLIC ACID TABLET (FP) PO SCH (10:14)
[2018-09-22] MEDS: MAG HYDROX/AL HYDROX/SIMETH 30 ML UNIT-DOSE CUP PO PRN (19:42)
[2018-09-22] MEDS: IBUPROFEN 400 MG TABLET (FP) PO PRN (19:42)
[2018-09-22] MEDS: MELATONIN 5 MG TABLETS PO PRN (21:12)
[2018-09-22] MEDS: QUEtiapine FUMARATE 50 MG TABLET PO SCH (21:12)
[2018-09-22] MEDS: THIAMINE HCL 100 MG TABLET (FP) PO SCH (21:12)
[2018-09-23] MEDS ORDERED: METHADONE HCL 10 MG TABLET ONE (06:05)
[2018-09-23] MEDS ORDERED: METHADONE HCL 40 MG DISPERSABLE TABLET ONE (06:05)
[2018-09-23] MEDS: METHADONE 80 MG, METHADONE 30 MG PO SCH (06:11)
[2018-09-23] MEDS: PRENATAL VITAMINS W/ FOLIC ACID TABLET (FP) PO SCH (10:07)
[2018-09-23] MEDS: NICOTINE 14 MG/24 HOURS TOPICAL PATCH TD SCH (10:07)
[2018-09-23] MEDS: busPIRone HCL 5 MG TABLET PO SCH ×2 (10:07→21:11)
[2018-09-23] MEDS: PANTOPRAZOLE 40 MG TABLET (FP) PO SCH (10:07)
[2018-09-23] MEDS: ACETAMINOPHEN 325 MG TABLET (FP) PO PRN ×2 (10:08→21:13)
[2018-09-23] MEDS: MAG HYDROX/AL HYDROX/SIMETH 30 ML UNIT-DOSE CUP PO PRN (15:50)
[2018-09-23] MEDS: THIAMINE HCL 100 MG TABLET (FP) PO SCH (21:11)
[2018-09-23] MEDS: QUEtiapine FUMARATE 50 MG TABLET PO SCH (21:12)
[2018-09-24] MEDS ORDERED: METHADONE HCL 10 MG TABLET ONE (05:56)
[2018-09-24] MEDS ORDERED: METHADONE HCL 40 MG DISPERSABLE TABLET ONE (05:57)
[2018-09-24] MEDS: METHADONE 80 MG, METHADONE 30 MG PO SCH (06:04)
[2018-09-24] MEDS: PANTOPRAZOLE 40 MG TABLET (FP) PO SCH (10:25)
[2018-09-24] MEDS: NICOTINE 14 MG/24 HOURS TOPICAL PATCH TD SCH (10:25)
[2018-09-24] MEDS: PRENATAL VITAMINS W/ FOLIC ACID TABLET (FP) PO SCH (10:25)
[2018-09-24] MEDS: busPIRone HCL 5 MG TABLET PO SCH ×2 (10:25→21:11)
[2018-09-24] MEDS: ACETAMINOPHEN 325 MG TABLET (FP) PO PRN ×2 (10:26→21:11)
[2018-09-24] MEDS: QUEtiapine FUMARATE 50 MG TABLET PO SCH (21:11)
[2018-09-24] MEDS: THIAMINE HCL 100 MG TABLET (FP) PO SCH (21:11)
[2018-09-25] MEDS ORDERED: METHADONE HCL 10 MG TABLET ONE (03:27)
[2018-09-25] MEDS ORDERED: METHADONE HCL 40 MG DISPERSABLE TABLET ONE (03:27)
[2018-09-25] MEDS: METHADONE 80 MG, METHADONE 30 MG PO SCH (05:54)
[2018-09-25] MEDS: PRENATAL VITAMINS W/ FOLIC ACID TABLET (FP) PO SCH (09:05)
[2018-09-25] MEDS: PANTOPRAZOLE 40 MG TABLET (FP) PO SCH (09:05)
[2018-09-25] MEDS: ACETAMINOPHEN 325 MG TABLET (FP) PO PRN ×2 (09:05→21:41)
[2018-09-25] MEDS: NICOTINE 14 MG/24 HOURS TOPICAL PATCH TD SCH (09:05)
[2018-09-25] MEDS: busPIRone HCL 5 MG TABLET PO SCH ×2 (09:05→21:41)
[2018-09-25] MEDS: THIAMINE HCL 100 MG TABLET (FP) PO SCH (21:41)
[2018-09-25] MEDS: QUEtiapine FUMARATE 50 MG TABLET PO SCH (21:41)
[2018-09-26] MEDS ORDERED: METHADONE HCL 10 MG TABLET ONE (03:38)
[2018-09-26] MEDS ORDERED: METHADONE HCL 40 MG DISPERSABLE TABLET ONE (03:38)
[2018-09-26] MEDS: METHADONE 80 MG, METHADONE 30 MG PO SCH (06:07)
[2018-09-26] MEDS: busPIRone HCL 5 MG TABLET PO SCH ×2 (09:54→21:47)
[2018-09-26] MEDS: ACETAMINOPHEN 325 MG TABLET (FP) PO PRN ×2 (09:54→21:49)
[2018-09-26] MEDS: PRENATAL VITAMINS W/ FOLIC ACID TABLET (FP) PO SCH (09:54)
[2018-09-26] MEDS: PANTOPRAZOLE 40 MG TABLET (FP) PO SCH (09:54)
[2018-09-26] MEDS: NICOTINE 14 MG/24 HOURS TOPICAL PATCH TD SCH (09:55)
[2018-09-26] MEDS: QUEtiapine FUMARATE 50 MG TABLET PO SCH (21:47)
[2018-09-26] MEDS: THIAMINE HCL 100 MG TABLET (FP) PO SCH (21:47)
[2018-09-27] MEDS ORDERED: METHADONE HCL 40 MG DISPERSABLE TABLET ONE (03:02)
[2018-09-27] MEDS ORDERED: METHADONE HCL 10 MG TABLET ONE (03:02)
[2018-09-27] MEDS: METHADONE 80 MG, METHADONE 30 MG PO SCH (06:34)
[2018-09-27] MEDS ORDERED: METHADONE 80 MG, METHADONE 30 MG PO SCH (10:16)
[2018-09-27] MEDS: PRENATAL VITAMINS W/ FOLIC ACID TABLET (FP) PO SCH (10:45)
[2018-09-27] MEDS: NICOTINE 14 MG/24 HOURS TOPICAL PATCH TD SCH (10:45)
[2018-09-27] MEDS: busPIRone HCL 5 MG TABLET PO SCH ×2 (10:45→21:35)
[2018-09-27] MEDS: PANTOPRAZOLE 40 MG TABLET (FP) PO SCH (10:45)
[2018-09-27] MEDS: ACETAMINOPHEN 325 MG TABLET (FP) PO PRN (10:47)
[2018-09-27] MEDS ORDERED: PT OWN MED DRAWER 7, Y5N ONE (10:52)
[2018-09-27] MEDS: THIAMINE HCL 100 MG TABLET (FP) PO SCH (21:35)
[2018-09-27] MEDS: QUEtiapine FUMARATE 50 MG TABLET PO SCH (21:35)
[2018-09-27] MEDS: MELATONIN 5 MG TABLETS PO PRN (21:35)
[2018-09-28] MEDS ORDERED: METHADONE HCL 40 MG DISPERSABLE TABLET ONE (06:12)
[2018-09-28] MEDS ORDERED: METHADONE HCL 10 MG TABLET ONE (06:12)
[2018-09-28] MEDS: METHADONE 80 MG, METHADONE 30 MG PO SCH (06:13)
--- NOTE | 2018-09-28 09:46 | PN ---
[facility] Progress Note (SOAP) Subjective: patient to be discharged tomorrow. Objective: A+OX 3; no neurological deficits noted. Heart rate regular, lungs clear, abd soft, non-tender, non-distended. +BS 09/28/18 09:43 CBC, BMP 09/14/18 11:25 09/14/18 11:25 Vital Signs (72 hours) 09/26/18 09/27/18 09/27/18 06:50 00:30 07:36 Temperature 97.7 F 97.8 F Pulse Rate 62 80 Respiratory 18 16 18 Rate Blood Pressure 125/69 102/60 09/28/18 07:09 Temperature 97.7 F Pulse Rate 65 Respiratory 16 Rate Blood Pressure 104/65 Assessment: Medically stable for discharge Discharge Dx: Cocaine dependence MMTP Asthma GERD Hep C COPD 09/28/18 09:44 Plan: Patient will be going for aftercare at [facility]. She receives primary care from [facility] on [address]. Medication prescriptions transmitted to pharmacy.
[2018-09-28] MEDS: NICOTINE 14 MG/24 HOURS TOPICAL PATCH TD SCH (10:20)
[2018-09-28] MEDS: busPIRone HCL 5 MG TABLET PO SCH ×2 (10:20→21:50)
[2018-09-28] MEDS: PRENATAL VITAMINS W/ FOLIC ACID TABLET (FP) PO SCH (10:21)
[2018-09-28] MEDS: PANTOPRAZOLE 40 MG TABLET (FP) PO SCH (10:21)
[2018-09-28] MEDS: ACETAMINOPHEN 325 MG TABLET (FP) PO PRN ×2 (10:22→21:48)
--- NOTE | 2018-09-28 14:13 | PN ---
[facility] Progress Note Note: Patient is scheduled for discharge tomorrow. Script for 30 days supply of medications(Buspar 5 mg/bid, Seroquel 50 mg/hs) will be electronically transmitted to [facility] at [address] [place] [address]
[2018-09-28] MEDS: THIAMINE HCL 100 MG TABLET (FP) PO SCH (21:47)
[2018-09-28] MEDS: MELATONIN 5 MG TABLETS PO PRN (21:47)
[2018-09-28] MEDS: QUEtiapine FUMARATE 50 MG TABLET PO SCH (21:49)
[2018-09-29] MEDS ORDERED: METHADONE HCL 10 MG TABLET ONE (06:09)
[2018-09-29] MEDS ORDERED: METHADONE HCL 40 MG DISPERSABLE TABLET ONE (06:09)
[2018-09-29] MEDS: METHADONE 80 MG, METHADONE 30 MG PO SCH (06:11)
[2018-09-29 07:28] VITALS: BP 118/61; PULSE 68; TEMP 97.3
[2018-09-29] MEDS: NICOTINE 14 MG/24 HOURS TOPICAL PATCH TD SCH (09:06)
[2018-09-29] MEDS: PRENATAL VITAMINS W/ FOLIC ACID TABLET (FP) PO SCH (09:06)
[2018-09-29] MEDS: busPIRone HCL 5 MG TABLET PO SCH (09:06)
[2018-09-29] MEDS: PANTOPRAZOLE 40 MG TABLET (FP) PO SCH (09:06)
[2018-09-29] MEDS: ACETAMINOPHEN 325 MG TABLET (FP) PO PRN (09:07)
--- NOTE | 2018-09-29 11:47 | PN ---
S Progress Note Note: PT DISCHARGED TODAY SCHEDULED. ALERT O X 3. NAD. Vital Signs - 24 hr 09/29/18 09/29/18 03:30 07:27 Temperature 97.3 F L Pulse Rate 68 Respiratory 16 18 Rate Blood Pressure 118/61
== END 2018-09-29 09:23 | disposition home or self-care (01) | DRG 895 ==
LOC: YASAS 08:08 → Y3E 11:09
PROVIDERS: ADMIT Neuromusculoskeletal Medicine & OMM; ATTEND Neuromusculoskeletal Medicine & OMM
PROC: HZ42ZZZ Group Counseling for Substance Abuse Treatment, Cognitive-Behavioral (ICD-10-PCS; principal; 2018-09-14)
DX: F14.20 Cocaine dependence, uncomplicated (principal); F11.20 Opioid dependence, uncomplicated; F31.81 Bipolar II disorder; F17.210 Nicotine dependence, cigarettes, uncomplicated; F25.9 Schizoaffective disorder, unspecified; K21.9 Gastro-esophageal reflux disease without esophagitis; J45.20 Mild intermittent asthma, uncomplicated; J44.9 Chronic obstructive pulmonary disease, unspecified; B18.2 Chronic viral hepatitis C; R63.4 Abnormal weight loss
CPT/HCPCS: 36415; 80053; 81003; 81025; 85027; 86593; 87389; 90688; G0008